=== PATIENT | male | born 1945 | race Caucasian/White ===

== ENCOUNTER 2022-01-20 09:54 | Emergency (ER) | payer MEDICARE ==
[2022-01-20] MEDS ORDERED: Albuterol/Ipratropium 3.0-0.5 MG/3 ML Neb Soln NEB ONE (10:26)
[2022-01-20] MEDS ORDERED: Sodium Chloride 0.9% 10 ML Syringe FLUSH PRN (10:54)
[2022-01-20 11:39] LABS: ESTIMATED GFR 57 mL/min (>60)
[2022-01-20] MEDS ORDERED: Furosemide 40 MG/4 ML VIAL IVPUSH ONE (11:49)
[2022-01-20 12:25] LABS: CORONAVIRUS COVID-19 NAA NEGATIVE (NEGATIVE)
== END 2022-01-20 14:04 | disposition home or self-care (01) ==
LOC: JP.ED 09:54
DX: J43.9 Emphysema, unspecified (principal); J18.9 Pneumonia, unspecified organism; R60.0 Localized edema; R91.8 Other nonspecific abnormal finding of lung field; Z20.822 Contact with and (suspected) exposure to COVID-19
CPT/HCPCS: 0241U; 36415; 71046; 71046-26; 80053; 83880; 84145; 84443; 85025; 86140; 93005; 93010; 94640; 96374; 99284; 99285-25; J1940; J3490; J7620

== ENCOUNTER 2022-03-03 13:39 | Emergency (ER) | payer MEDICARE | END 2022-03-03 14:51 | disposition home or self-care (01) | LOC: JP.ED 13:39 | DX: R06.2 Wheezing (principal); T45.1X5A Adverse effect of antineoplastic and immunosuppressive drugs, initial encounter; F17.210 Nicotine dependence, cigarettes, uncomplicated | CPT/HCPCS: 99283 ==

== ENCOUNTER 2022-03-27 08:39 | Emergency (ER) | payer MEDICARE ==
[2022-03-27] MEDS ORDERED: Furosemide 40 MG/4 ML VIAL IVPUSH ONE (09:19)
[2022-03-27] MEDS ORDERED: Nitroglycerin 0.4 MG Tab.SL SL ONE (09:19)
[2022-03-27] MEDS ORDERED: Sodium Chloride 0.9% 10 ML Syringe FLUSH PRN (09:20)
[2022-03-27 10:02] LABS: ESTIMATED GFR 63 mL/min (>60); TROPONIN I HIGH SENSITIVITY 6.8 pg/mL (<=60.3)
[2022-03-27] MEDS ORDERED: Albuterol/Ipratropium 3.0-0.5 MG/3 ML Neb Soln NEB ONE (10:14)
[2022-03-27] MEDS ORDERED: Sodium Chloride 0.9% 1,000 ML IV SCH (10:30)
[2022-03-27] MEDS ORDERED: Sodium Chloride 0.9% 100 ML IV ONE (10:44)
[2022-03-27] MEDS ORDERED: Sodium Chloride 0.9% 10 ML Syringe FLUSH ONE (10:44)
[2022-03-27] MEDS ORDERED: Iopamidol 755 Mg/ML 100 ML Bottle IV ONE (10:44)
[2022-03-27] MEDS ORDERED: Morphine 2 MG/ML SYRINGE IVPUSH ONE (11:59)
== END 2022-03-27 16:29 | disposition home or self-care (01) ==
LOC: JP.ED 08:39
DX: R06.02 Shortness of breath (principal); R06.01 Orthopnea; F17.210 Nicotine dependence, cigarettes, uncomplicated; Z88.8 Allergy status to other drugs, medicaments and biological substances
CPT/HCPCS: 36415; 71045; 80053; 83880; 84484; 85025; 93005; 94640; 96361; 96374; 96375; 99285; A9270; J1940; J2270; J3490; J7030; J7620